=== PATIENT | female | born 1940 | race Caucasian/White ===

== ENCOUNTER 2020-08-24 13:40 | Observation (INO) | payer MEDICARE, OTHER ==
[2020-08-24 14:12] LABS: HEMATOCRIT 35.9 % (36.0-47.0); MEAN CORPUSCULAR HEMOGLOBIN 31.2 pg (27.0-33.4); MEAN CORPUSCULAR HGB CONC 33.6 g/dL (32.0-36.0); MEAN CORPUSCULAR VOLUME 93 fl (80-97); PLATELET COUNT 280 10^3/uL (150-450); RED BLOOD COUNT 3.85 10^6/uL (3.72-5.28); RED CELL DISTRIBUTION WIDTH 13.9 % (11.5-14.0); WHITE BLOOD COUNT 9.1 10^3/uL (4.0-10.5)
[2020-08-24 14:25] LABS: ALBUMIN 3.4 g/dL (3.5-5.0); ALKALINE PHOSPHATASE 79 U/L (38-126); ANION GAP 8 (5-19); ASPARTATE AMINO TRANSFERASE 36 U/L (14-36); BILIRUBIN,DIRECT 0.2 mg/dL (0.0-0.4); BILIRUBIN,TOTAL 0.9 mg/dL (0.2-1.3); BLOOD UREA NITROGEN 30 mg/dL (7-20); CALCIUM 9.3 mg/dL (8.4-10.2); CARBON DIOXIDE 35 mmol/L (22-30); CHLORIDE 85 mmol/L (98-107); GLUCOSE 132 mg/dL (75-110); POTASSIUM 3.6 mmol/L (3.6-5.0); TOTAL PROTEIN 6.5 g/dL (6.3-8.2)
[2020-08-24 14:30] LABS: ABSOLUTE LYMPHOCYTES# (MANUAL) 0.7 10^3/uL (0.5-4.7); BASOPHILS % (MANUAL) 0 % (0-2); EOSINOPHILS % (MANUAL) 0 % (0-6); LYMPHOCYTES % (MANUAL) 5 % (13-45); MONOCYTES % (MANUAL) 11 % (3-13); SEGMENTED NEUTROPHILS % (MAN) 81 % (42-78); TOTAL CELLS COUNTED 100
[2020-08-24 14:31] LABS: ANISOCYTOSIS SLIGHT; PLATELET COMMENT ADEQUATE; POLYCHROMASIA SLIGHT
[2020-08-24] MEDS ORDERED: IPRATROPIUM BROMIDE 0.02% NEB 0.5 MG/2.5 ML AMPUL NEB ONE ×2 (14:32→17:00)
[2020-08-24] MEDS ORDERED: ALBUTEROL SULFATE 0.083% NEB 2.5 MG/3 ML AMPUL NEB ONE ×2 (14:32→17:00)
--- NOTE | 2020-08-24 14:32 | RADIOLOGY REPORT (SQ) ---
EXAM DESCRIPTION: CHEST SINGLE VIEW IMAGES COMPLETED DATE/TIME: 08/24/2020 2:14 pm REASON FOR STUDY: SHORTNESS OF BREATH COMPARISON: 05/28/2012 EXAM PARAMETERS: NUMBER OF VIEWS: One view. TECHNIQUE: Single frontal radiographic view of the chest acquired. RADIATION DOSE: NA LIMITATIONS: None. FINDINGS: LUNGS AND PLEURA: No opacities, masses or pneumothorax. No pleural effusion. MEDIASTINUM AND HILAR STRUCTURES: No masses. Contour normal. HEART AND VASCULAR STRUCTURES: Heart normal in size. Normal vasculature. BONES: No acute findings. HARDWARE: None in the chest. OTHER: No other significant finding. IMPRESSION: NO ACUTE RADIOGRAPHIC FINDING IN THE CHEST. TECHNICAL DOCUMENTATION: JOB ID: [id number] 2010 [employer]- All Rights Reserved Reading location - IP/workstation name: [email or web address]
--- NOTE | 2020-08-24 14:45 | ER Document Report ---
ED General - General Chief Complaint: Breathing Difficulty Stated Complaint: DIFFICULTY BREATHING Time Seen by Provider: 08/24/20 14:19 Primary Care Provider: PEMA SULTANA MD [Primary Care Provider] - Follow up as needed Mode of Arrival: Medic Information source: Patient, Emergency Med Personnel - [facility] Notes: Patient is brought in by ambulance secondary to shortness of breath. She states this is been going on for 2 to 3 days. Is progressively getting worse. It is worse with exertion and better with rest. She states she is still a smoker. And she also uses nebulizers at home. She denies any type of home oxygen. Patient denies any pain no nausea vomiting or diarrhea. No fevers. She states she does not have any known exposures to Covid. She she has had a worse dry cough. Her shortness of breath has been relatively constant and severe today. - Related Data Allergies/Adverse Reactions: codeine [Codeine] Adverse Reaction (Severe, Verified 05/28/12 14:22) GI upset Past Medical History - General Information source: Patient - Social History Smoking Status: Current Every Day Smoker Chew tobacco use (# tins/day): No Frequency of alcohol use: None Drug Abuse: None Family History: Reviewed & Not Pertinent Patient has homicidal ideation: No - Past Medical History Cardiac Medical History: Reports: Hx Hypercholesterolemia Denies: Hx Atrial Fibrillation, Hx Congestive Heart Failure, Hx Coronary Artery Disease, Hx Heart Attack, Hx Hypertension, Hx Peripheral Vascular Disease, Hx Pulmonary Embolism, Hx Heart Murmur Pulmonary Medical History: Reports: Hx COPD Denies: Hx Asthma, Hx Bronchitis, Hx Pneumonia, Hx Respiratory Failure, Hx Sleep Apnea, Hx Tuberculosis Neurological Medical History: Denies: Hx Cerebrovascular Accident, Hx Seizures, Hx Parkinson's Disease Renal/ Medical History: Reports: Hx Kidney Stones - 35 yrs ago. Denies: Hx E nd Stage Renal Disease, Hx Ovarian Cysts, Hx Peritoneal Dialysis, Hx Pelvic Inflammatory Disease Malignancy Medical History: Reports: Hx Breast Cancer - 28 yrs ago/Right radical mastectomy/left simple mastectomy. Denies: Hx Cervical Cancer, Hx Lung Cancer, Hx Ovarian Cancer GI Medical History: Reports: Hx Gastroesophageal Reflux Disease - gastritis, Hx Hiatal Hernia, Hx Ulcer. Denies: Hx Crohn's Disease, Hx Irritable Bowel, Hx Liver Failure, Hx Pancreatitis Musculoskeletal Medical History: Reports Hx Arthritis - hands,back,knees, Denies Hx Fibromyalgia, Denies Hx Multiple Sclerosis, Denies Hx Muscular Dystrophy Psychiatric Medical History: Reports: Hx Depression Denies: Hx Bipolar Disorder, Hx Dementia, Hx Post Traumatic Stress Disorder, Hx Schizophrenia Traumatic Medical History: Reports: Hx Fractures - rt wrist Past Surgical History: Reports: Hx Appendectomy, Hx Mastectomy - bilateral with reconstruction, Hx Tubal Ligation. Denies: Hx Bowel Surgery, Hx Section, Hx Cholecystectomy, Hx Colostomy, Hx Coronary Artery Bypass Graft, Hx Gastric Bypass Surgery, Hx Herniorrhaphy, Hx Hysterectomy, Hx Pacemaker, Hx Tonsillectomy - Immunizations Hx Pneumococcal Vaccination: 10/07/07 Review of Systems - Review of Systems Constitutional: Malaise, Weakness Cardiovascular: denies: Chest pain, Palpitations Respiratory: Cough, Short of breath -: Yes All other systems reviewed and negative Physical Exam - Vital signs Vitals: Temp 97.8 F 08/24/20 13:40 Interpretation: Hypoxic - General General appearance: Alert In distress: Moderate - Respiratory - HEENT Head: Normocephalic, Atraumatic Eyes: Normal Pupils: PERRL - Respiratory Respiratory status: Respiratory distress - Moderate Chest status: Nontender Breath sounds: Decreased air movement, Rhonchi, Wheezing Chest palpation: Other - Patient has a nontender raised scaly mass on her right breast in the upper outer and upper inner quadrant. She states this has been there for many years. - Cardiovascular Rhythm: Regular Heart sounds: Normal auscultation Murmur: No - Abdominal Inspection: Normal Distension: No distension Bowel sounds: Normal Tenderness: Nontender Organomegaly: No organomegaly - Back Back: Normal, Nontender - Extremities General upper extremity: Nontender, Normal ROM, Normal temperature, Other - Right upper extremity has some diffuse induration and swelling that is from just superior to the elbow down into the hand. She states she is not sure how long this has been present. It appears to not be tender. General lower extremity: Abby's sign, Other - Patient has erythema of both bilateral lower extremities right more than left. She does have some ulcerations that appear consistent with a vascular ulcerations. The feet are cool and discolored. The right is more discolored and cool than the left. I am unable to ascertain dorsalis pedis pulses - Neurological Cognition: Normal Orientation: AAOx4 Jack Coma Scale Eye Opening: Spontaneous Casper Coma Scale Verbal: Oriented Jack Coma Scale Motor: Obeys Commands Jack Coma Scale Total: 15 Speech: Normal Sensory: Normal - Psychological Associated symptoms: Normal affect, Normal mood - Skin Skin Temperature: Warm Skin Moisture: Dry Skin Color: Normal Course - Re-evaluation Re-evalutation: 08/24/20 16:06 At 4 PM I have turned the care of the patient over to Dr. Hernandez. She will follow up on imaging studies and determine final disposition. - Vital Signs Vital signs: Temp Pulse Resp BP Pulse Ox 97.8 F 106/55 L 88 L 08/24/20 13:40 08/24/20 14:00 08/24/20 14:00 - Laboratory Result Diagrams: 08/24/20 13:48 08/24/20 13:48 Laboratory results interpreted by me: 08/24/20 08/24/20 08/24/20 13:48 13:48 13:48 Hct 35.9 L Seg Neuts % (Manual) 81 H Lymphocytes % (Manual) 5 L Sodium 127.5 L Chloride 85 L Carbon Dioxide 35 H BUN 30 H Glucose 132 H Lactic Acid 2.7 H Albumin 3.4 L - Diagnostic Test Radiology reviewed: Image reviewed, Reports reviewed - EKG Interpretation by Me EKG shows normal: Sinus rhythm Rate: Tachycardia - 112 Rhythm: Other - Bigeminy Voltage: Decreased voltage Discharge - Discharge Clinical Impression: Hypoxia, COPD exacerbation Condition: Serious Disposition: OTHER Referrals: PEMA SULTANA MD [Primary Care Provider] - Follow up as needed
[2020-08-24] MEDS ORDERED: NORMAL SALINE 1000 ML 1,000 ML IV ONE (15:06)
[2020-08-24 15:10] LABS: INTERNATIONAL RATION (INR) 0.95; PROTHROMBIN TIME 12.9 SEC (11.4-15.4)
[2020-08-24] MEDS ORDERED: CEFTRIAXONE 2 GM/D5W RTU 2 GM/50 ML RTUPB IV ONE (16:07)
[2020-08-24] MEDS ORDERED: AZITHROMYCIN 250 MG TABLET PO ONE (16:07)
--- NOTE | 2020-08-24 17:24 | RADIOLOGY REPORT (SQ) ---
EXAM DESCRIPTION: VENOUS UNILATERAL UPPER IMAGES COMPLETED DATE/TIME: 08/24/2020 5:13 pm REASON FOR STUDY: right arm swelling COMPARISON: None. TECHNIQUE: Dynamic and static moreno scale and color images acquired of the right arm venous system. S elected spectral images acquired with additional compression and augmentation maneuvers. The contrala teral subclavian vein and internal jugular vein were also imaged. Images stored on PACS. LIMITATIONS: None. FINDINGS: INTERNAL JUGULAR VEIN: Normal phasicity, compression, augmentation. No visualized echogeni c material on moreno scale. No defects on color images. Comparison opposite side normal. Note that the right IJ is smaller than the left. SUBCLAVIAN VEIN: Difficult to visualize the subclavian vein. Multiple collaterals are identified. F indings suggest possible chronic thrombosis. AXILLARY VEIN: Normal compression, augmentation. No visualized echogenic material on moreno scale. No d efects on color images. BRACHIAL VEIN: Normal compression, augmentation. No visualized echogenic material on moreno scale. No d efects on color images. BASILIC VEIN: Normal compression, augmentation. No visualized echogenic material on moreno scale. No de fects on color images. CEPHALIC VEIN: Normal compression, augmentation. No visualized echogenic material on moreno scale. No d efects on color images. OTHER: No other significant finding. CONTRALATERAL SUBCLAVIAN VEIN AND INTERNAL JUGULAR VEIN: Normal phasicity, compression and augmentation. No visualized echogenic material on moreno scale. No de fects on color images. 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 No acute DVT. TECHNICAL DOCUMENTATION: JOB ID: [id number] 2010 [employer]- All Rights Reserved Reading location - IP/workstation name: [email or web address]
--- NOTE | 2020-08-24 18:25 | RADIOLOGY REPORT (SQ) ---
EXAM DESCRIPTION: ARTERIAL LOWER EXTREM BILAT IMAGES COMPLETED DATE/TIME: 08/24/2020 5:13 pm REASON FOR STUDY: cold/purple feet/pain COMPARISON: None. TECHNIQUE: Dynamic and static moreno scale and color images acquired of the lower extremity arteries. Additional selected spectral images recorded. LIMITATIONS: None. FINDINGS: RIGHT LEG: INFLOW ARTERIES: Normal, no obstruction evident. FEMORAL ARTERIES:Multiphasic waveforms. Normal, no velocity elevation to suggest focal stenosis. Norm al color Doppler evaluation. No aneurysm. POPLITEAL ARTERY:Multiphasic waveforms. Normal, no velocity elevation to suggest focal stenosis. Norm al color Doppler evaluation. No aneurysm. PATENT TIBIOPERONEAL TRUNK AND 3 VESSEL RUNOFF: Yes, normal vessels. OTHER: Scattered calcified plaque throughout. LEFT LEG: INFLOW ARTERIES: Normal, no obstruction evident. FEMORAL ARTERIES:Multiphasic waveforms. Normal, no velocity elevation to suggest focal stenosis. Norm al color Doppler evaluation. No aneurysm. POPLITEAL ARTERY:Multiphasic waveforms. Normal, no velocity elevation to suggest focal stenosis. Norm al color Doppler evaluation. No aneurysm. PATENT TIBIOPERONEAL TRUNK AND 3 VESSEL RUNOFF: Yes, normal vessels. OTHER: Scattered calcified plaque throughout. IMPRESSION: Scattered calcified plaque bilaterally. No focal stenosis or occlusions. TECHNICAL DOCUMENTATION: JOB ID: [id number] 2010 [employer]- All Rights Reserved Reading location - IP/workstation name: [email or web address]
--- NOTE | 2020-08-24 18:58 | RADIOLOGY REPORT (SQ) ---
EXAM DESCRIPTION: CTA CHEST IMAGES COMPLETED DATE/TIME: 08/24/2020 6:38 pm REASON FOR STUDY: sob COMPARISON: None. TECHNIQUE: CT scan of the chest performed using helical scanning technique with dynamic intravenous contrast injection. Images reviewed with lung, soft tissue and bone windows. Reconstructed coronal and sagittal MPR images reviewed. Additional 3 dimensional post-processing performed to develop Maximal Intensity Projection images (SD P). All images stored on PACS. All CT scanners at this facility use dose modulation, iterative reconstruction, and/or weight based d osing when appropriate to reduce radiation dose to as low as reasonably achievable (ALARA). [facility]: Dose Right [facility]: CareDose [facility]: Dose Right [facility]: Teradose 4D [facility]: RelTel CONTRAST TYPE AND DOSE: contrast/concentration: Isovue 350.00 mmol/ml; Total Contrast Delivered: 60. 0 ml; Total Saline Delivered: 46.1 ml Contrast bolus adequate for pulmonary arteries and aorta. RENAL FUNCTION: GFR > 60. RADIATION DOSE: CT Rad equipment meets quality standard of care and radiation dose reduction techniq ues were employed. CTDIvol: 9.9 - 14.3 mGy. DLP: 519 mGy-cm. . LIMITATIONS: None. FINDINGS: LUNGS AND PLEURA: Reticular interstitial changes of the lungs perhaps related to vascular congestion. AORTA AND GREAT VESSELS: No aneurysm. Contrast bolus not optimized for the aorta. HEART: No pericardial effusion. No significant coronary artery calcifications. PULMONARY ARTERIES: No emboli visualized in the main pulmonary arteries or the segmental branches. HILAR AND MEDIASTINAL STRUCTURES: No identified masses or abnormal nodes. HARDWARE: None in the chest. UPPER ABDOMEN: No significant findings. Limited exam. THYROID AND OTHER SOFT TISSUES: No masses. No adenopathy. BONES: No acute or significant finding. 3D MIPS: Confirm above findings. OTHER: No other significant finding. IMPRESSION: No pulmonary emboli Reticular chagnes in the lungs, likely vascular congetstion COMMENT: Quality ID # [id number]: Final reports with documentation of one or more dose reduction techniques (e.g., Automated exposure control, adjustment of the mA and/or kV according to patient size, use of iterative reconstruction technique) TECHNICAL DOCUMENTATION: JOB ID: [id number] 2010 [employer]- All Rights Reserved Reading location - IP/workstation name: [email or web address]
--- NOTE | 2020-08-24 19:26 | EKG REPORT ---
SEVERITY:- ABNORMAL ECG - SINUS TACHYCARDIA VENTRICULAR BIGEMINY LOW VOLTAGE IN FRONTAL LEADS LEFT VENTRICULAR HYPERTROPHY BORDERLINE T ABNORMALITIES, INFERIOR LEADS : Confirmed by: Bibiana Palafox MD 24-Aug-2020 19:25:54
[2020-08-24 20:09] LABS: VENOUS BLOOD BASE EXCESS 6.9 mmol/L; VENOUS BLOOD HCO3 35.4 mmol/L (20-32); VENOUS BLOOD PH 7.32 (7.30-7.42)
[2020-08-24 20:10] LABS: VENOUS BLOOD PCO2 69.9 mmHg (35-63)
[2020-08-24] MEDS ORDERED: IPRATROPIUM/ALBUTEROL 0.5-2.5 MG/3 ML AMPUL NEB PRN (20:47)
[2020-08-24] MEDS ORDERED: ACETAMINOPHEN 325 MG TABLET PO PRN (20:47)
[2020-08-24] MEDS: PREDNISONE 20 MG TABLET PO SCH (21:55)
[2020-08-24] MEDS: RINGERS SOLUTION,LACTATED 1,000 ML IV PRN (21:55)
[2020-08-24] MEDS: FAMOTIDINE 20 MG TABLET PO SCH (21:55)
[2020-08-24] MEDS: NICOTINE 21 MG/24 HR PATCH.TD24 TD SCH (21:55)
[2020-08-24 22:39] LABS: APPEARANCE,URINE CLEAR; BILIRUBIN,URINE NEGATIVE (NEGATIVE); COLOR,URINE YELLOW; GLUCOSE, URINE NEGATIVE (NEGATIVE); KETONES,URINE NEGATIVE (NEGATIVE); LEUKOCYTE ESTERASE,URINE NEGATIVE (NEGATIVE); NITRITE,URINE NEGATIVE (NEGATIVE); PROTEIN,URINE 30 mg/dL (NEGATIVE); URINE SPECIFIC GRAVITY 1.027; UROBILINOGEN,URINE NEGATIVE mg/dL (<2.0)
[2020-08-24] MEDS: ENOXAPARIN SODIUM INJ 30 MG/0.3 ML DISP.SYRIN SUBCUT SCH (22:45)
--- NOTE | 2020-08-24 22:46 | PDOC H&P ---
History of Present Illness Admission Date/PCP: PEMA SULTANA MD Patient complains of: Shortness of breath History of Present Illness: EDMUND BYRNE is a 80 year old female with a history of heavy tobacco use, GERD and COPD is brought to the ED by her son for a progressively worsening shortness of breath. He stated that she has been having a decline in her f unctional status over the past few months. She feels weak, has been unable to move around and when she tries to walk using a walker has been having frequent falls the last episode being a week ago. She also has lost significant weight. She states that she always feels short of breath but over the past 1 week her shortness of breath has markedly worsened and now she feels short of breath even at rest. Associated with this she also reports that she has been having wheezing. Reports chronic cough productive of yellowish sputum which she attributes to her smoking and she states that her cough has not changed in intensity but sputum has changed from whitish to yellowish in color. She report s that she has skin lesions on the right upper chest area where she had mastectomy for the past few years and multiple biopsies done at her primary care revealed no sign of malignancy. She also reports swelling of the right upper extremity for the past few years. She denies any history of fever, chills, chest pain, palpitation, lightheadedness, loss of consciousness, abnormal body movement, nausea, vomiting, abdominal pain, diarrhea or any change in her urinary habits. She states that she and her have been staying at home for the past few months and denies any recent contact history with sick patient. Past Medical History Cardiac Medical History: Reports: Hyperlipidema Denies: Atrial Fibrillation, Congestive Heart Failure, Coronary Artery Disease, Myocardial Infarction, Hypertension, Peripheral Vascular Disease, Pulmonary Embolism, Heart Murmur Pulmonary Medical History: Reports: Chronic Obstructive Pulmonary Disease (COPD) Denies: Asthma, Bronchitis, Pneumonia, Respiratory Failure, Sleep Apnea, Tuberculosis Neurological Medical History: Denies: Seizures Renal/ Medical History: Denies: End Stage Renal Disease Malignancy Medical History: Reports: Breast Cancer - 28 yrs ago/Right radical mastectomy/left simple mastectomy Denies: Cervical Cancer, Lung Cancer, Ovarian Cancer GI Medical History: Reports: Gastroesophageal Reflux Disease - gastritis, Hiatal Hernia Denies: Crohn's Disease Musculoskeltal Medical History: Reports: Arthritis - hands,back,knees Denies: Fibromyalgia Psychiatric Medical History: Reports: Depression Denies: Bipolar Disorder, Dementia, Post Traumatic Stress Disorder Past Surgical History Past Surgical History: Reports: Appendectomy, Mastectomy - bilateral with reconstruction, Tubal Ligation Denies: Amputation, Section, Cholecystectomy, Colostomy, Coronary Artery Bypass Graft, Gastric Bypass Surgery, Herniorrhaphy, Hysterectomy, Pacemaker, Tonsillectomy Social History Information Source: Patient Lives with: Family Smoking Status: Current Every Day Smoker Electronic Cigarette use?: No Frequency of Alcohol Use: None Hx Recreational Drug Use: No Drugs: None Hx Prescription Drug Abuse: No - Advance Directive Resuscitation Status: Full Code Family History Family History: Reviewed & Not Pertinent Parental Family History Reviewed: Yes Children Family History Reviewed: Yes Sibling(s) Family History Reviewed.: Yes Medication/Allergy Home Medications: Albuterol Sulfate [Proair HFA 200 puff/8.5 gm MDI] 1 puff IH PRN PRN 05/28/12 Omeprazole [Prilosec 20 mg Capsule] 20 mg PO DAILY 05/28/12 Simvastatin [Zocor 40 mg Tablet] 40 mg PO QHS 05/28/12 Tiotropium [place] [Spiriva Handihaler 18 mcg/dose (30 Dose)] 1 puff IH DAILY 05/28/12 Triazolam [Halcion] 0.25 mg PO QHS 05/28/12 Venlafaxine HCl [Venlafaxine Hcl Er] 75 mg PO DAILY 05/28/12 Allergies/Adverse Reactions: codeine [Codeine] Adverse Reaction (Severe, Verified 05/28/12 14:22) GI upset Review of Systems Constitutional: PRESENT: as per HPI Eyes: ABSENT: visual disturbances Ears: ABSENT: hearing changes Nose, Mouth, and Throat: ABSENT: headache(s), mouth pain, sore throat Cardiovascular: ABSENT: chest pain, edema, orthropnea, palpitations Respiratory: PRESENT: as per HPI Gastrointestinal: ABSENT: abdominal pain, constipation, diarrhea, hematemesis, hematochezia, nausea, vomiting Genitourinary: ABSENT: dysuria, hematuria Musculoskeletal: ABSENT: joint swelling Integumentary: PRESENT: as per HPI Neurological: PRESENT: frequent falls. ABSENT: abnormal gait, abnormal speech, confusion, dizziness, focal weakness, syncope Psychiatric: ABSENT: anxiety, depression, homidical ideation, suicidal ideation Endocrine: ABSENT: cold intolerance, heat intolerance, polydipsia, polyuria Hematologic/Lymphatic: ABSENT: easy bleeding, easy bruising Physical Exam Vital Signs: Temp Pulse Resp BP Pulse Ox 98.4 F 104/64 90 L 08/24/20 19:35 08/24/20 19:46 08/24/20 19:46 Intake & Output 08/23/20 08/24/20 08/25/20 06:59 06:59 06:59 Intake Total 1050 Balance 1050 Weight 34 kg Additional comments: GENERAL APPEARANCE: Alert and oriented x3, in no acute distress, on intranasal oxygen HEENT: Normocephalic and atraumatic. No scleral icterus. Dry oral mucosa NECK: Supple. No lymphadenopathy or tenderness. No JVD CHEST: Symmetric. Nontender to palpation. There are multiple fungating skin lesions on the right upper chest area with no visible discharge. There are also visible tortuous veins around the right shoulder area. LUNGS: Has scattered diffuse wheezing bilaterally. No dullness to percussion, no bronchial breath sounds. HEART: Regular rate and rhythm with normal S1 and S2. No murmurs, gallops, or rubs. ABDOMEN: soft, active bowel sounds, no direct or rebound tenderness. No organomegaly detected. No CVA tenderness EXTREMITIES: No cyanosis or clubbing. The right upper extremity is significantly swollen than the left but no hyperemia, tenderness or differential warmth Left lower extremity is also more swollen than the right lower extremity. Both feet appear hyperemic but no tenderness or differential warmth. Dorsalis pedis not palpable on the left lower extremity but faintly palpated on the right side MUSCULOSKELETAL: Has generalized weakness with muscle wasting PSYCHIATRIC: Recent and remote memory is intact. Appropriate mood and affect. SKIN: Warm, dry, and well perfused. There are fungating skin lesions on the right upper chest area with no visible discharge. NEUROLOGIC: No focal sensory or motor deficits are noted. Results Laboratory Results: 08/24/20 13:48 08/24/20 13:48 08/24/20 08/24/20 08/24/20 13:48 13:48 13:48 WBC 9.1 RBC 3.85 Hgb 12.0 Hct 35.9 L MCV 93 MCH 31.2 MCHC 33.6 RDW 13.9 Plt Count 280 Seg Neutrophils % Not Reportable VBG pH VBG pCO2 VBG HCO3 VBG Base Excess Sodium 127.5 L Potassium 3.6 Chloride 85 L Carbon Dioxide 35 H Anion Gap 8 BUN 30 H Creatinine 0.58 Est GFR ( Amer) > 60 Glucose 132 H Lactic Acid 2.7 H Calcium 9.3 Total Bilirubin 0.9 AST 36 Alkaline Phosphatase 79 Total Protein 6.5 Albumin 3.4 L 08/24/20 08/24/20 13:48 18:10 WBC RBC Hgb Hct MCV MCH MCHC RDW Plt Count Seg Neutrophils % VBG pH 7.32 VBG pCO2 69.9 H* VBG HCO3 35.4 H VBG Base Excess 6.9 Sodium Potassium Chloride Carbon Dioxide Anion Gap BUN Creatinine Est GFR ( Amer) Glucose Lactic Acid 1.2 Calcium Total Bilirubin AST Alkaline Phosphatase Total Protein Albumin 08/24/20 13:48 Troponin I 0.051 Impressions: Chest X-Ray 08/24/20 13:44 IMPRESSION: NO ACUTE RADIOGRAPHIC FINDING IN THE CHEST. Chest/Abdomen CTA 08/24/20 14:29 IMPRESSION: No pulmonary emboli Reticular chagnes in the lungs, likely vascular congetstion Lower Extremity Ultrasound 08/24/20 14:30 IMPRESSION: Scattered calcified plaque bilaterally. No focal stenosis or occlusions. 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 No acute DVT. Assessment and Plan - Diagnosis (1) Acute and chronic respiratory failure with hypoxia Is this a current diagnosis for this admission?: Yes Plan: Patient presents with worsening shortness of breath Likely due to acute exacerbation of COPD On arrival she was saturating 87% on room air and had diffuse wheezing Chest x-ray showed no acute finding CTA chest showed no PE VBG showed pH of 7.32 and PCO2 of 69.9 Currently saturating well on intranasal oxygen Started on prednisone, breathing treatment Currently on ceftriaxone and azithromycin Follow-up with blood culture (2) COPD exacerbation Is this a current diagnosis for this admission?: Yes Plan: Patient is a heavy tobacco user up to 2 packs/day Has been out of here albuterol inhaler recently Started on breathing treatment with DuoNeb Prednisone 40 mg p.o. daily Currently on ceftriaxone and azithromycin Follow-up with blood culture Continue intranasal oxygen to maintain saturation between 88 and 92% Incentive spirometry (3) Hyponatremia Is this a current diagnosis for this admission?: Yes Plan: Serum sodium level 127 on presentation Currently has no symptoms Likely due to volume depletion Has been hydrated with 1 L of IV fluid at ER Continued LR at 100 mL/h Monitor BMP with a target correction of 4 to 6 mEq in the first 24 hours (4) Elevated troponin Is this a current diagnosis for this admission?: Yes Plan: Currently patient denies any chest pain Initial EKG shows bigeminy with no ST-T wave change Initial troponin was 0.051 Likely type II non-STEMI from hypoxia Continue trending cardiac enzymes Continue monitoring her on telemetry Placed on aspirin and atorvastatin (5) Physical deconditioning Is this a current diagnosis for this admission?: Yes Plan: Patient has been having generalized weakness and frequent falls Last incident was a week ago and patient denies lightheadedness, loss of consciousness or head injury Appears to be mechanical per patient description PT, OT consult has been placed May need short-term rehab (6) Volume depletion Is this a current diagnosis for this admission?: Yes Plan: Patient has elevated BUN with a BUN/creatinine ratio of over 40 Has been given 1 L of normal saline at the ED Continue hydration with LR at 100 mL/h We will closely monitor vitals and renal indicis (7) GERD (gastroesophageal reflux disease) Is this a current diagnosis for this admission?: Yes Plan: Currently stable, continue pantoprazole (8) Tobacco dependence Is this a current diagnosis for this admission?: Yes Plan: Patient is a heavy tobacco user Provided counseling on tobacco cessation Placed her on nicotine patch (9) Swelling of right upper extremity Is this a current diagnosis for this admission?: Yes Plan: Doppler ultrasound done at the ED showed no acute DVT but there are laterals along subclavian vein indicating possible chronic subclavian vein thrombosis (10) Swelling of left lower extremity Is this a current diagnosis for this admission?: Yes Plan: Arterial Doppler showed no stenosis but there were scattered calcium plaques Left lower extremity appears more swollen than the right Ordered Doppler ultrasound of the left lower extremity - Time Time Spent with patient: 35 or more minutes Total Critical Time (Minutes): 45 Smoking Cessation Education: 3 to 10 minutes Medications reviewed and adjusted accordingly: Yes Anticipated Discharge Disposition: Home with Home Health Anticipated Discharge Timeframe: within 48 hours - Inpatient Certification Based on my medical assessment, after consideration of the patient's comorbidities, presenting symptoms, or acuity I expect that the services needed warrant INPATIENT care.: Yes I certify that my determination is in accordance with my understanding of [facility]'s requirements for reasonable and necessary INPATIENT services [42 CFR 412.3e].: Yes Medical Necessity: Significant Comorbidiites Make Outpatient Treatment Too Risky, Need Close Monitoring Due to Risk of Patient Decompensation, Need For IV Fluids, Need for Nebulizer Therapy and Monitoring of Response, Risk of Complication if Not Cared For in Hospital Post Hospital Care: D/C or Transfer Summary
[2020-08-24 22:56] LABS: URINE SODIUM 46 mmol/L (30-90)
[2020-08-25 00:34] LABS: OSMOLALITY,URINE 601 mOsm/kg (300-900)
[2020-08-25 05:25] LABS: ANION GAP 6 (5-19); BLOOD UREA NITROGEN 25 mg/dL (7-20); CARBON DIOXIDE 35 mmol/L (22-30); CHLORIDE 88 mmol/L (98-107); CHOLESTEROL 162.97 mg/dL (0-200); GLUCOSE 151 mg/dL (75-110); POTASSIUM 4.3 mmol/L (3.6-5.0); TRIGLYCERIDES 63 mg/dL (<150)
[2020-08-25 05:36] LABS: DIRECT LDL 70 mg/dL (<100)
[2020-08-25] MEDS: RINGERS SOLUTION,LACTATED 1,000 ML IV PRN (08:00)
[2020-08-25] MEDS ORDERED: LEVOFLOXACIN 750 MG TABLET PO SCH (10:00)
[2020-08-25] MEDS ORDERED: ASPIRIN 81 MG TABLET, CHEWABLE PO SCH (10:00)
[2020-08-25] MEDS ORDERED: CEFTRIAXONE 1 GM/D5W RTU 1 GM/50 ML RTUPB IV SCH (10:00)
[2020-08-25] MEDS ORDERED: ENOXAPARIN SODIUM INJ 40 MG/0.4 ML DISP.SYRIN SUBCUT SCH (10:00)
[2020-08-25 12:00] LABS: VENOUS BLOOD BASE EXCESS 3.8 mmol/L; VENOUS BLOOD HCO3 32.9 mmol/L (20-32); VENOUS BLOOD PH 7.27 (7.30-7.42)
[2020-08-25 12:05] LABS: VENOUS BLOOD PCO2 73.5 mmHg (35-63)
[2020-08-25] MEDS: PREDNISONE 20 MG TABLET PO SCH (12:32)
[2020-08-25] MEDS: NICOTINE 21 MG/24 HR PATCH.TD24 TD SCH (12:32)
[2020-08-25] MEDS: FAMOTIDINE 20 MG TABLET PO SCH (12:32)
[2020-08-25] MEDS: ENOXAPARIN SODIUM INJ 30 MG/0.3 ML DISP.SYRIN SUBCUT SCH (12:33)
[2020-08-25] MEDS ORDERED: LORAZEPAM 0.5 MG TABLET PO PRN (12:52)
--- NOTE | 2020-08-25 13:13 | RADIOLOGY REPORT (SQ) ---
EXAM DESCRIPTION: VENOUS UNILATERAL LOWER IMAGES COMPLETED DATE/TIME: 08/25/2020 1:01 pm REASON FOR STUDY: left lower extremity swelling, possible DVT COMPARISON: None. TECHNIQUE: Dynamic and static moreno scale and color images acquired of the left leg venous system. Se lected spectral images acquired with additional compression and augmentation maneuvers. The contralat eral common femoral vein and saphenofemoral junction were also imaged. Images stored on PACS. LIMITATIONS: None. FINDINGS: COMMON FEMORAL: Normal phasicity, compression and augmentation. No visualized echogenic ma terial on moreno scale. No defects on color images. FEMORAL: Normal compression and augmentation. No visualized echogenic material on moreno scale. No defe cts on color images. POPLITEAL: Normal compression, augmentation. No visualized echogenic material on moreno scale. No defec ts on color images. CALF VESSELS: Normal compression, augmentation. No visualized echogenic material on moreno scale. No de fects on color images. GSV and SSV: Normal compression, augmentation. No visualized echogenic material on moreno scale. No def ects on color images. ANY DEEP VENOUS INSUFFICIENCY: Not evaluated. ANY EVIDENCE OF POPLITEAL CYST: No. OTHER: No other significant finding. CONTRALATERAL COMMON FEMORAL VEIN AND SAPHENOFEMORAL JUNCTION: Normal phasicity, compression and augmentation. No visualized echogenic material on moreno scale. No de fects on color images. IMPRESSION: NO EVIDENCE DVT OR SVT IN THE LEFT LEG. TECHNICAL DOCUMENTATION: JOB ID: [id number] 2010 [employer]- All Rights Reserved Reading location - IP/workstation name: [email or web address]
[2020-08-25 14:03] LABS: ARTERIAL BLOOD BASE EXCESS 2.3 mmol/L; ARTERIAL BLOOD H2CO3 2.29 mmol/L (1.05-1.35); ARTERIAL BLOOD HCO3 31.8 mmol/L (20-24); ARTERIAL BLOOD O2 SATURATION 96.9 % (94-98); ARTERIAL BLOOD PH 7.24 (7.35-7.45); ARTERIAL BLOOD PO2 108.8 mmHg (80-100); ARTERIAL BLOOD TOTAL CO2 34.1 mmol/L (21-25)
[2020-08-25 14:09] LABS: ARTERIAL BLOOD FIO2 4L
--- NOTE | 2020-08-25 14:15 | ADVANCED CARE ---
- Diagnosis (1) Acute respiratory failure with hypoxia and hypercapnia Diagnosis Current: Yes Resuscitation Status: Do Not Resuscitate Discussion: Multiple goals of care conversations have been held today with myself, Dr. Yeung and Ms. Biggs. Patient is exceedingly frail, cachectic, chronically ill and in poor overall health. She is very tachypnic, appears to be tiring out, and her hypoxia and hypercapnia are worsening. She is clearly uncomfortable. We discussed these issues at the bedside. Unfortunately, her was at a PT appointment himself and her son had stepped out, so neither was able to join us. Ms. Valdez states that her shall be her medical POA if she is unable to make decisions. She tells me that she hates doctors and hospitals and just wants to be home. Her comfort and independence are important to her. She has had a dramatic decline in her functional capacity over the last few months, and she is barely able to eat or move out of bed these days. She is okay with NIPPV as long as it can help her to breathe better, with the goal of her going home, but she is not interested in further aggressive, invasive interventions, like intubation. I think this is absolutely appropriate. Patient and family are considering home hospice as an option but need more time to think about this. She is not ready at this time to transition to comfort care measures only. Time Spent: >20 minutes
[2020-08-25 15:29] LABS: A TYPE INFLUENZA AG NEGATIVE (NEGATIVE); B INFLUENZA AG NEGATIVE (NEGATIVE)
[2020-08-25 15:34] LABS: C-REACTIVE PROTEIN 82.4 mg/L (<10.0)
--- NOTE | 2020-08-25 17:18 | ADVANCED CARE ---
- Diagnosis (1) Acute respiratory failure with hypoxia and hypercapnia Diagnosis Current: Yes Attendance: Son, Elmer and patient, Mrs. Valdze Resuscitation Status: Comfort Measures Only Discussion: Patient was unable to tolerate BIPAP and has been fighting keeping NC on. She has decided to change code status to COMFORT MEASURES ONLY. She and her family have decided to pursue Home Hospice services. Discussed with patient and family at length today. Family is in the process of contacting Home Hospice agencies. Time Spent: >30 minutes
[2020-08-25] MEDS: LORAZEPAM INJ 2 MG/1 ML VIAL IV PRN ×2 (17:50→21:17)
[2020-08-25] MEDS: MORPHINE SULFATE 10 MG/ML INJ IV PRN ×2 (17:50→21:15)
[2020-08-25] MEDS ORDERED: AZITHROMYCIN 500 MG in DEXTROSE 5%-WATER 250 ML IV SCH (18:00)
--- NOTE | 2020-08-25 18:19 | PDOC PROGRESS REPORT ---
Subjective Date:: 08/25/20 Subjective:: Patient is resting in bed. She is notable respiratory distress. Son notes progressively worsening SOB over past x24 hours. Attempted BIPAP and failed. Patient repeatedly removed BIPAP mask and as per nursing became tangled in the tubing. Patient placed back on intranasal oxygen, though she removed NC multiple times while I am in the room evaluating her. Goals of care conversations as documented. Patient has changed her status to DNR, wishes to pursue home health care and is placed on comfort measures. Family made aware of patient's discussion, currently working on selecting home hospice agency. Reason For Visit: SHORTNESS OF BREATH SECONDARY TO PREVIOUSLY UNDIAG Physical Exam Vital Signs: Temp Pulse Resp BP Pulse Ox 97.4 F 125 H 32 H 143/47 H 100 08/25/20 13:01 08/25/20 13:01 08/25/20 13:29 08/25/20 13:01 08/25/20 13:29 Intake & Output 08/24/20 08/25/20 08/26/20 06:59 06:59 06:59 Intake Total 1050 1020 Output Total 350 Balance 700 1020 Weight 34 kg General appearance: PRESENT: severe distress, other - Patient lying in bed with her legs bent and her upper body in the tripod position. Eye exam: PRESENT: EOMI. ABSENT: scleral icterus Mouth exam: PRESENT: dry mucosa, tongue midline Neck exam: PRESENT: other - Limited ROM of her neck.. ABSENT: carotid bruit, JVD, lymphadenopathy Respiratory exam: PRESENT: tachypnea, wheezes - scattered diffuse wheezing bilaterally, other - There is evidence of previous mastectomy on the right chest wall. There are multiple raised fungating lesions that are rough, raised, and scaly. Without discharge.. ABSENT: chest wall tenderness, retraction Cardiovascular exam: PRESENT: +S1, +S2, tachycardia - Heart rate 120s.. ABSENT: diastolic murmur, systolic murmur Pulses: PRESENT: other - Unable to palpate left DP. GI/Abdominal exam: PRESENT: normal bowel sounds, soft. ABSENT: tenderness Extremities exam: PRESENT: other - Left > right upper extremity swelling. Left upper extremity with notable colaterals. No tenderness of left upper extremity. Bilateral lower extremities edematous, L>R. Feet are hyperemic. No warmth, or redness. Musculoskeletal exam: PRESENT: deformity - generalized muscle wasting and weakness Patient lying in position with knees bent and pulled into chest. Her upper body is in the tripod position. ROM significantly limited, essentionally unable to asses ROM due to patient's habitus.. ABSENT: ambulat ory, full ROM Neurological exam: PRESENT: alert, altered, oriented to person, oriented to place, oriented to time Psychiatric exam: PRESENT: anxious, flat affect Skin exam: PRESENT: dry, other - Lesions on chest wall as described above. There is an ecchymotic lesion just to the right department return back. There is no tenderness to evaluation. She has multiple lesions bilateral lower extremities notably 1 only anterior yun right lower extremity with macerated skin.. ABSENT: intact Results Laboratory Results: 08/24/20 13:48 08/25/20 04:20 08/24/20 08/24/20 08/24/20 13:48 13:48 18:10 Carbonic Acid HCO3/H2CO3 Ratio ABG pH ABG pCO2 ABG pO2 ABG HCO3 ABG O2 Saturation ABG Base Excess VBG pH 7.32 VBG pCO2 69.9 H* VBG HCO3 35.4 H VBG Base Excess 6.9 FiO2 Sodium Potassium Chloride Carbon Dioxide Anion Gap BUN Creatinine Est GFR ( Amer) Glucose Serum Osmolality 279 Lactic Acid 1.2 Calcium Ferritin C-Reactive Protein Triglycerides Cholesterol LDL Cholesterol Direct VLDL Cholesterol HDL Cholesterol TSH Free T4 Urine Color Urine Appearance Urine pH Ur Specific [place] Urine Protein Urine Glucose (UA) Urine Ketones Urine Blood Urine Nitrite Ur Leukocyte Esterase Urine WBC (Auto) Urine RBC (Auto) Urine Osmolality 08/24/20 08/24/20 08/25/20 22:05 22:05 04:20 Carbonic Acid HCO3/H2CO3 Ratio ABG pH ABG pCO2 ABG pO2 ABG HCO3 ABG O2 Saturation ABG Base Excess VBG pH VBG pCO2 VBG HCO3 VBG Base Excess FiO2 Sodium 128.6 L Potassium 4.3 Chloride 88 L Carbon Dioxide 35 H Anion Gap 6 BUN 25 H Creatinine 0.55 Est GFR ( Amer) > 60 Glucose 151 H Serum Osmolality Lactic Acid Calcium 9.0 Ferritin C-Reactive Protein Triglycerides 63 Cholesterol 162.97 LDL Cholesterol Direct 70 VLDL Cholesterol 13.0 HDL Cholesterol 67 TSH Free T4 Urine Color YELLOW Urine Appearance CLEAR Urine pH 6.0 Ur Specific [place] 1.027 Urine Protein 30 H Urine Glucose (UA) NEGATIVE Urine Ketones NEGATIVE Urine Blood NEGATIVE Urine Nitrite NEGATIVE Ur Leukocyte Esterase NEGATIVE Urine WBC (Auto) 0 Urine RBC (Auto) 1 Urine Osmolality 601 08/25/20 08/25/20 08/25/20 04:20 11:38 12:15 Carbonic Acid HCO3/H2CO3 Ratio ABG pH ABG pCO2 ABG pO2 ABG HCO3 ABG O2 Saturation ABG Base Excess VBG pH 7.27 L VBG pCO2 73.5 H* VBG HCO3 32.9 H VBG Base Excess 3.8 FiO2 Sodium Potassium Chloride Carbon Dioxide Anion Gap BUN Creatinine Est GFR ( Amer) Glucose Serum Osmolality Lactic Acid Calcium Ferritin C-Reactive Protein Triglycerides Cholesterol LDL Cholesterol Direct VLDL Cholesterol HDL Cholesterol TSH 0.20 L Free T4 2.00 Urine Color Urine Appearance Urine pH Ur Specific [place] Urine Protein Urine Glucose (UA) Urine Ketones Urine Blood Urine Nitrite Ur Leukocyte Esterase Urine WBC (Auto) Urine RBC (Auto) Urine Osmolality 08/25/20 08/25/20 13:40 14:40 Carbonic Acid 2.29 H HCO3/H2CO3 Ratio 13:1 ABG pH 7.24 L ABG pCO2 76.0 H* ABG pO2 108.8 H ABG HCO3 31.8 H ABG O2 Saturation 96.9 ABG Base Excess 2.3 VBG pH VBG pCO2 VBG HCO3 VBG Base Excess FiO2 4L Sodium Potassium Chloride Carbon Dioxide Anion Gap BUN Creatinine Est GFR ( Amer) Glucose Serum Osmolality Lactic Acid Calcium Ferritin 189.00 C-Reactive Protein 82.4 H Triglycerides Cholesterol LDL Cholesterol Direct VLDL Cholesterol HDL Cholesterol TSH Free T4 Urine Color Urine Appearance Urine pH Ur Specific [place] Urine Protein Urine Glucose (UA) Urine Ketones Urine Blood Urine Nitrite Ur Leukocyte Esterase Urine WBC (Auto) Urine RBC (Auto) Urine Osmolality 08/24/20 08/24/20 08/25/20 13:48 22:10 04:20 Troponin I 0.051 0.041 0.034 Impressions: Chest X-Ray 08/24/20 13:44 IMPRESSION: NO ACUTE RADIOGRAPHIC FINDING IN THE CHEST. Chest/Abdomen CTA 08/24/20 14:29 IMPRESSION: No pulmonary emboli Reticular chagnes in the lungs, likely vascular congetstion Lower Extremity Ultrasound 08/24/20 14:30 IMPRESSION: Scattered calcified plaque bilaterally. No focal stenosis or occlusions. Venous Doppler Study 08/25/20 09:00 IMPRESSION: NO EVIDENCE DVT OR SVT IN THE LEFT LEG. Assessment and Plan - Diagnosis (1) Acute respiratory failure with hypoxia and hypercapnia Is this a current diagnosis for this admission?: Yes Plan: Likely due to COPD exacerbation/general body habitus VBG: pH 7.27, pCO2 73.5, HCO3 32.9. Trailed and failed BIPAP due to discomfort. Placed back on intranasal oxygen supplementation. Started on comfort measures - Ativan 0.5mg IV q4hr prn agitation/anxiety - Morphine 1mg IV q4hr prn pain - Continue Levoquin is tolerating PO - Continue breathing treatments for comfort - Continue Prednisone 40mg if tolerating PO (2) COPD exacerbation Is this a current diagnosis for this admission?: Yes Plan: Patient is a heavy tobacco user up to 2 packs/day. Nicotine patch provided. Continue duoneb. Continue Prednisone 40mg if tolerating PO. Discontinues ceftriaxone and azithromycin. (3) Elevated troponin Is this a current diagnosis for this admission?: Yes Plan: Without CP. Troponin trended downward 0.051 -> 0.041 -> 0.034 Initial EKG shows bigeminy with no ST-T wave change Type II non-STEMI from hypoxia Continue monitoring her on telemetry On comfort measures, discontinue aspirin and atorvastatin (4) Hyponatremia Is this a current diagnosis for this admission?: Yes Plan: 127 -> 128 without symptoms. Likely due to volume depletion. Comfort measures, fluids discontinued. No further attention needed at this time. (5) Physical deconditioning Is this a current diagnosis for this admission?: Yes Plan: Patient has been having generalized weakness and frequent falls With most recent fall last , fell and landed on left hip. Left hip Xray ordered. Results pending. Comfort measures, do not believe patient phsyically capable to work with PT/OT due to current status of health and overall body habitus. (6) Swelling of left lower extremity Is this a current diagnosis for this admission?: Yes Plan: Arterial Doppler showed no stenosis but there were scattered calcium plaques Left lower extremity appears more swollen than the right Doppler ultrasound of the left lower extremity no evidence DVT. 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 (8) Tobacco dependence Is this a current diagnosis for this admission?: Yes Plan: Patient is a heavy tobacco user Provided counseling on tobacco cessation Placed her on nicotine patch (9) Volume depletion Is this a current diagnosis for this admission?: Yes Plan: Patient has elevated BUN with a BUN/creatinine ratio of over 40 Placed on comfort measures as addressed in ACP note. Fluids discontinued. (10) Lactic acid acidosis Is this a current diagnosis for this admission?: Yes Plan: Likely secondary to acute hypoxia. This has since resolved. BC without growth in 24 hours. Wound culture obtained, pending. - Plan Summary Summary: Comfort measures as addressed in ACP note. Patient to go home with home hospice tomorrow. - Time Time Spent with patient: 35 or more minutes Smoking Cessation Education: 3 to 10 minutes Medications reviewed and adjusted accordingly: Yes Anticipated Discharge Disposition: Home with Hospice Anticipated Discharge Timeframe: within 24 hours
[2020-08-25] MEDS ORDERED: SCOPOLAMINE HYDROBROMIDE 1.5 MG PATCH.TD72 TD ONE (20:00)
[2020-08-25] MEDS ORDERED: ATORVASTATIN CALCIUM 40 MG TABLET PO SCH (22:00)
[2020-08-26] MEDS ORDERED: INFLUENZA QUAD (6MOS+) 2020-21 VAC 0.5 ML SYR IM ONE (08:00)
--- NOTE | 2020-08-26 08:22 | PDOC CONSULTATION ---
Consultation Consult Date: 08/26/20 Provider Consulted: RILEY SANDOVAL Consult reason:: Hematology/Oncolology consultation was requested for patient with a history of breast cancer. History of Present Illness Admission Date/PCP: 08/24/20 21:28 PEMA SULTANA MD History of Present Illness: EDMUND BYRNE is a 80 year old female who according to medical records has a history of breast cancer. Patient was brought to the hospital last night in respiratory distress, thought to be due to COPD exacerbation. Events of light night were reviewed. I went in to examine the patient and family member is sitting at bedside. He immediately asked me if she must remain here in the hospital or if she will be able to be transported home prior to her . He states that his sister is in the process of making all arrangements at home with Hospice and they are requesting she be discharged this afternoon. He had many questions, all of which I was able to answer. He states that she calmed down after morphine was given last night and she has been resting comfortably most of the morning. Past Medical History Cardiac Medical History: Reports: Hyperlipidema Denies: Atrial Fibrillation, Congestive Heart Failure, Coronary Artery Disease, Myocardial Infarction, Hypertension, Peripheral Vascular Disease, Pulmonary Embolism, Heart Murmur Pulmonary Medical History: Reports: Chronic Obstructive Pulmonary Disease (COPD) Denies: Asthma, Bronchitis, Pneumonia, Respiratory Failure, Sleep Apnea, Tuberculosis Neurological Medical History: Denies: Seizures Renal/ Medical History: Denies: End Stage Renal Disease Malignancy Medical History: Reports: Breast Cancer - 28 yrs ago/Right radical mastectomy/left simple mastectomy Denies: Cervical Cancer, Lung Cancer, Ovarian Cancer GI Medical History: Reports: Gastroesophageal Reflux Disease - gastritis, Hiatal Hernia Denies: Crohn's Disease Musculoskeltal Medical History: Reports: Arthritis - hands,back,knees Denies: Fibromyalgia Psychiatric Medical History: Reports: Depression Denies: Bipolar Disorder, Dementia, Post Traumatic Stress Disorder Past Surgical History Past Surgical History: Reports: Appendectomy, Mastectomy - bilateral with reconstruction, Tubal Ligation Denies: Amputation, Section, Cholecystectomy, Colostomy, Coronary Artery Bypass Graft, Gastric Bypass Surgery, Herniorrhaphy, Hysterectomy, Pacemaker, Tonsillectomy Social History Lives with: Family Smoking Status: Current Every Day Smoker Cigarettes Packs Per Day: 2 Electronic Cigarette use?: No Number of Years Smokin Last Time Smoked: 08/23/20 Frequency of Alcohol Use: None Hx Recreational Drug Use: No Drugs: None Hx Prescription Drug Abuse: No - Advance Directive Resuscitation Status: Comfort Measures Only Family History Parental Family History Reviewed: No Children Family History Reviewed: No Sibling(s) Family History Reviewed.: No Medication/Allergy Home Medications: Albuterol Sulfate [Proair HFA 200 puff/8.5 gm MDI] 2 puff IH QIDP PRN 05/28/12 Simvastatin [Zocor 40 mg Tablet] 40 mg PO QHS 05/28/12 Venlafaxine HCl [Venlafaxine Hcl Er] 150 mg PO DAILY 05/28/12 Aspirin [Ecotrin 81 mg EC Tablet] 81 mg PO DAILY 08/25/20 Donepezil HCl 10 mg PO DAILY 08/25/20 Gabapentin [Neurontin 100 mg Capsule] 100 mg PO TID 08/25/20 Hydrochlorothiazide [Hydrodiuril 25 mg Tablet] 25 mg PO QAM 08/25/20 Ipratropium/Albuterol Sulfate [Duoneb 3 ml Ampul] 3 ml NEB [id number] PRN 08/25/20 Losartan Potassium 100 mg PO DAILY 08/25/20 Allergies/Adverse Reactions: codeine [Codeine] Adverse Reaction (Severe, Verified 05/28/12 14:22) GI upset Review of Systems ROS unobtainable: Due to mental status Physical Exam Vital Signs: Temp Pulse Resp BP Pulse Ox 98.6 F 112 H 22 H 107/66 100 08/25/20 20:44 08/25/20 20:44 08/25/20 20:44 08/25/20 20:44 08/26/20 03:58 Intake & Output 08/25/20 08/26/20 08/27/20 06:59 06:59 06:59 Intake Total 1050 1020 Output Total 350 Balance 700 1020 Weight 34 kg 42.6 kg General appearance: PRESENT: thin Exam: Moderate respiratory distress with fish mouth breathing. Head exam: PRESENT: normocephalic Mouth exam: PRESENT: dry mucosa Respiratory exam: PRESENT: accessory muscle use Extremities exam: ABSENT: pedal edema Neurological exam: PRESENT: other - Patient is sleeping and does not respond to voice or tactile stimuli. Skin exam: PRESENT: pallor Results Laboratory Results: 08/24/20 13:48 08/25/20 04:20 08/25/20 08/25/20 08/25/20 11:38 12:15 13:40 Carbonic Acid 2.29 H HCO3/H2CO3 Ratio 13:1 ABG pH 7.24 L ABG pCO2 76.0 H* ABG pO2 108.8 H ABG HCO3 31.8 H ABG O2 Saturation 96.9 ABG Base Excess 2.3 VBG pH 7.27 L VBG pCO2 73.5 H* VBG HCO3 32.9 H VBG Base Excess 3.8 FiO2 4L Ferritin C-Reactive Protein Free T4 2.00 08/25/20 14:40 Carbonic Acid HCO3/H2CO3 Ratio ABG pH ABG pCO2 ABG pO2 ABG HCO3 ABG O2 Saturation ABG Base Excess VBG pH VBG pCO2 VBG HCO3 VBG Base Excess FiO2 Ferritin 189.00 C-Reactive Protein 82.4 H Free T4 08/24/20 08/24/20 08/25/20 13:48 22:10 04:20 Troponin I 0.051 0.041 0.034 Impressions: Chest X-Ray 08/24/20 13:44 IMPRESSION: NO ACUTE RADIOGRAPHIC FINDING IN THE CHEST. Chest/Abdomen CTA 08/24/20 14:29 IMPRESSION: No pulmonary emboli Reticular chagnes in the lungs, likely vascular congetstion Lower Extremity Ultrasound 08/24/20 14:30 IMPRESSION: Scattered calcified plaque bilaterally. No focal stenosis or occlusions. Venous Doppler Study 08/25/20 09:00 IMPRESSION: NO EVIDENCE DVT OR SVT IN THE LEFT LEG. Assessment & Plan - Diagnosis (1) Acute and chronic respiratory failure with hypoxia Is this a current diagnosis for this admission?: Yes Plan: Patient is very appropriate for Hospice services. She appears to be actively dying. Family wishes for patient to be at home during her final hours, with the rest of her family. I have spoken with staff and with hospitalist. All are in agreement with this plan. (2) COPD exacerbation Is this a current diagnosis for this admission?: Yes
[2020-08-26 08:51] VITALS: BP 107/57
--- NOTE | 2020-08-26 18:42 | Death Summary ---
Summary Date : 08/26/20 Time of :: 09:20 Autopsy: No Resuscitation Status: Comfort Measures Only Primary Care Provider: PEMA SULTANA MD - Final Diagnosis (1) Acute respiratory failure with hypoxia and hypercapnia Is this a current diagnosis for this admission?: Yes (2) COPD exacerbation Is this a current diagnosis for this admission?: Yes (3) Elevated troponin Is this a current diagnosis for this admission?: Yes (4) Hyponatremia Is this a current diagnosis for this admission?: Yes (5) Physical deconditioning Is this a current diagnosis for this admission?: Yes (6) Swelling of left lower extremity Is this a current diagnosis for this admission?: Yes (7) Swelling of right upper extremity Is this a current diagnosis for this admission?: Yes (8) Tobacco dependence Is this a current diagnosis for this admission?: Yes (9) Volume depletion Is this a current diagnosis for this admission?: Yes (10) Lactic acid acidosis Is this a current diagnosis for this admission?: Yes Hospital Course:: Patient was admitted to the hospital on 08/24/2020 for acute respiratory failure with hypoxia and hypercapnia likely secondary to COPD exacerbation. Patient initially placed on bipap though refused to keep on. Held two separate goals of care conversations with patient, inevitably patient made the choice to be DNR and wanted to move forward with home hospice. Patient was inevitably placed on comfort measures. Medications for comfort were implemented. Patient seen resting in bed on morning rounds with family at bedside. I received a call from nurse at 9:20am on 08/26/2020 reports expiration of patient. Acute respiratory failure with hypoxia and hypercapnia Likely due to COPD exacerbation/general body habitus VBG: pH 7.27, pCO2 73.5, HCO3 32.9. Trailed and failed BIPAP due to discomfort. Placed back on intranasal oxygen supplementation. Started on comfort measures - Ativan 0.5mg IV q4hr prn agitation/anxiety - Morphine 1mg IV q4hr prn pain - Continue Levoquin is tolerating PO - Continue breathing treatments for comfort - Continue Prednisone 40mg if tolerating PO COPD exacerbation Patient is a heavy tobacco user up to 2 packs/day. Nicotine patch provided. Continue duoneb. Continue Prednisone 40mg if tolerating PO. Discontinues ceftriaxone and azithromycin. Elevated troponin Without CP. Troponin trended downward 0.051 -> 0.041 -> 0.034 Initial EKG shows bigeminy with no ST-T wave change Type II non-STEMI from hypoxia Continue monitoring her on telemetry On comfort measures, discontinue aspirin and atorvastatin Hyponatremia 127 -> 128 without symptoms. Likely due to volume depletion. Comfort measures, fluids discontinued. No further attention needed at this time. Physical deconditioning Patient has been having generalized weakness and frequent falls With most recent fall last , fell and landed on left hip. Left hip Xray ordered. Results pending. Comfort measures, do not believe patient phsyically capable to work with PT/OT due to current status of health and overall body habitus. Swelling of left lower extremity Arterial Doppler showed no stenosis but there were scattered calcium plaques Left lower extremity appears more swollen than the right Doppler ultrasound of the left lower extremity no evidence DVT. 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 Tobacco dependence Patient is a heavy tobacco user Provided counseling on tobacco cessation Placed her on nicotine patch Volume depletion Patient has elevated BUN with a BUN/creatinine ratio of over 40 Placed on comfort measures as addressed in ACP note. Fluids discontinued. Lactic acid acidosis Likely secondary to acute hypoxia. This has since resolved. BC without growth in 24 hours. Wound culture obtained, pending.
== END 2020-08-26 13:50 | disposition expired ==
LOC: ER 13:40 → EH 21:28 → INTOOBSV 21:28 → EH 08-25 09:46 → 5TH 08-25 10:58 → 3S 08-25 15:42
PROVIDERS: ADMIT Student in an Organized Health Care Education/Training Program; ATTEND Physician Assistant
DX: J96.02 Acute respiratory failure with hypercapnia (principal); J96.01 Acute respiratory failure with hypoxia; J44.1 Chronic obstructive pulmonary disease with (acute) exacerbation; R79.89 Other specified abnormal findings of blood chemistry; E87.1 Hypo-osmolality and hyponatremia; R53.1 Weakness; R60.0 Localized edema; E86.9 Volume depletion, unspecified; Z85.3 Personal history of malignant neoplasm of breast; F17.210 Nicotine dependence, cigarettes, uncomplicated; Z79.899 Other long term (current) drug therapy; Z79.82 Long term (current) use of aspirin
CPT/HCPCS: 93005; 99285; 96372; 36415 ×2; 87040; 87070 ×2; 84439; 87205; 87880; 82803 ×3; 82728; 83605; 83615; 83930; 84443; 83935; 84300; 85025; 85384; 85610; 86140; 87077 ×2; 80048; 80053; 81001; 84484 ×2; 87186; 80061; 87804; 87150 ×26; 93971 ×2; 93925; 71045; 71275; 93010; 94660 ×2; G0378 ×4; A9270 ×12; J2270; J2060; J1650; J7030; J7120 ×2; J0696; J7512; J7613; J7644